=== PATIENT | female | born 1985 | race African-American/Black ===

== ENCOUNTER 2018-04-25 10:09 | Day surgery (SDC) | payer OTHER ==
[~2018-04-25 10:09] MED LIST: LR 1,000 ML IV
[2018-04-25 10:58] LABS: BASO # 0.1 10^3/uL (0.0-0.2); BASO % 1.1 % (0.0-1.0); EOS # 0.2 10^3/uL (0.0-0.50); EOS % 4.2 % (0.0-3.0); HEMATOCRIT 37.1 % (36.0-47.0); HEMOGLOBIN 11.5 g/dl (12.0-15.5); IMMATURE GRANULOCYTE % 0.2 % (0-3.0); LYMPH # 1.6 10^3/uL (1.5-4.5); LYMPH % 30.4 % (24.0-44.0); MEAN CORPUSCULAR HEMOGLOBIN 25.4 pg (27.0-33.0); MEAN CORPUSCULAR VOLUME 81.9 fl (80.0-96.0); MONO # 0.4 10^3/uL (0.0-0.8); NEUTROPHILS % 57.1 % (36.0-66.0); PLATELET COUNT, AUTOMATED 276 10^3/uL (150-450); RED BLOOD COUNT 4.53 10^6/uL (4.00-5.40); RED CELL DISTRIBUTION WIDTH 18.6 % (11.5-14.5); WHITE BLOOD COUNT 5.3 10^3/uL (4.0-10.0)
[2018-04-25 11:25] LABS: ANION GAP 7 MEQ/L (8-16); BLOOD UREA NITROGEN 13 MG/DL (7-18); CALCIUM LEVEL 8.9 MG/DL (8.5-10.1); CARBON DIOXIDE LEVEL 26 MEQ/L (21-32); CHLORIDE LEVEL 108 MEQ/L (98-107); CONTROL LINE HCG INT CTR LINE PRESENT; CREATININE FOR GFR 0.82 MG/DL (0.55-1.30); GLOMERULAR FILTRATION RATE > 60.0 (>60); GLUCOSE, FASTING 83 MG/DL (70-100); HCG, SERUM QUALITATIVE NEGATIVE (NEGATIVE); SODIUM LEVEL 141 MEQ/L (136-145)
[2018-04-25] MEDS ORDERED: MIDAZOLAM INJ 2 MG/2 ML VIAL (J2250) As Ordered (12:06)
[2018-04-25] MEDS ORDERED: ROCURONIUM BROMIDE 50 MG/5 ML VIAL As Ordered (12:07)
[2018-04-25] MEDS ORDERED: fentaNYL 100 MCG/2 ML INJECTION (J3010) As Ordered ×2 (12:07→14:12)
[2018-04-25] MEDS ORDERED: dexameTHASONE 4 MG/ML 1ML VIAL (J1100) As Ordered ×2 (12:09)
[2018-04-25] MEDS ORDERED: BUPIVACAINE HCL 0.5% 30 ML VIAL As Ordered (12:41)
[2018-04-25] MEDS: SILVER NITRATE APPLICATOR As Ordered (13:31)
[2018-04-25] MEDS: BUPIVACAINE HCL 0.25% 30 ML VIAL As Ordered (13:31)
[2018-04-25] MEDS ORDERED: KETOROLAC 60 MG/2 ML VIAL (J1885) As Ordered (13:47)
[2018-04-25] MEDS ORDERED: ONDANSETRON 4MG/2ML VIAL (J2405) As Ordered ×2 (13:47→14:12)
[2018-04-25] MEDS ORDERED: SUGAMMADEX SODIUM 500 MG/5 ML VIAL (BRIDION) As Ordered (13:52)
[2018-04-25] MEDS ORDERED: NEOSTIGMINE 10 MG/10 ML VIAL (J2710) As Ordered (13:56)
[2018-04-25] MEDS ORDERED: GLYCOPYRROLATE INJ 0.2 MG/ML 2 ML VIAL As Ordered ×2 (13:56)
[2018-04-25] MEDS ORDERED: LR 1,000 ML IV (14:30)
[2018-04-25] MEDS ORDERED: IBUPROFEN 800 MG TAB PO (14:30)
[2018-04-25] MEDS ORDERED: PERCOCET 5MG/325MG TAB PO (14:30)
[2018-04-25] MEDS ORDERED: HYDROMORPHONE HCL 0.5 MG/ 0.5 ML SYRINGE (J1170 PER 1) IV (14:30)
[2018-04-25] MEDS: ONDANSETRON 4MG/2ML VIAL (J2405) IV (14:30)
[2018-04-25] MEDS: PERCOCET 5MG/325MG TAB PO ×2 (14:40→15:08)
[2018-04-25] MEDS: fentaNYL 100 MCG/2 ML INJECTION (J3010) IV ×4 (14:40→15:07)
== END 2018-04-25 16:15 | disposition home or self-care (01) ==
LOC: M SDC 10:09
DX: R10.2 Pelvic and perineal pain (principal); N73.6 Female pelvic peritoneal adhesions (postinfective); D64.9 Anemia, unspecified; F41.9 Anxiety disorder, unspecified; F32.9 Major depressive disorder, single episode, unspecified; Z79.899 Other long term (current) drug therapy
CPT/HCPCS: 49320

== ENCOUNTER → 2018-12-21 | Outpatient (REF) | payer OTHER ==
[~2018-12-21] MED LIST changes: +BUPR1TAB53 PO; +FERR325T3 PO; +GABA-843 PO; +HYDR50TA70 PO; -LR 1,000 ML IV; +MIRA3350 PO; +TIZA4CAP PO; +VITA500055 PO
== END ==
LOC: M SFHCPLAZ 11:18
PROVIDERS: ATTEND Dermatology
DX: R21 Rash and other nonspecific skin eruption (principal)
CPT/HCPCS: 11104; 11105; 36415; 86255; 88300; G0463